=== PATIENT | female | born 2000 | race Caucasian/White ===

== ENCOUNTER 2018-06-10 08:09 | Emergency (ER) | payer BC ==
[2018-06-10 08:26] VITALS: BP 123/70
--- NOTE | 2018-06-10 08:41 | UC ---
Skin Complaint HPI - HPI Summary HPI Summary: 18 yo female with spreading pruritic rash x 2 weeks recently rxed for strep had similar but less severe rash with strep in the past - History of Current Complaint Chief Complaint: UCRash Time Seen by Provider: 06/10/18 08:31 Stated Complaint: HIVES Hx Obtained From: Patient Hx Last Menstrual Period: 06/03/18 Onset/Duration: Gradual Onset, Lasting Weeks Timing: Constant Onset Severity: Mild Current Severity: Severe Pain Intensity: 2 Pain Scale Used: 0-10 Numeric Location: Discrete Character: Pruritus, Redness, Raised Aggravating Factor(s): Nothing Alleviating Factor(s): Nothing Associated Signs & Symptoms: Positive: Rash - Allergy/Home Medications Allergies/Adverse Reactions: Allergies Allergy/AdvReac Type Severity Reaction Status Date / Time amoxicillin Allergy Intermediate Rash Verified 06/10/18 08:27 azithromycin Allergy Intermediate Rash Verified 06/10/18 08:27 Penicillins Allergy Intermediate Rash Verified 06/10/18 08:27 PMH/Surg Hx/FS Hx/Imm Hx Previously Healthy: Yes - Surgical History Surgical History: None - Family History Known Family History: Positive: Non-Contributory Family History: Reviewed & N/C - Social History Alcohol Use: Occasionally Substance Use Type: Marijuana Smoking Status (MU): Former Smoker Review of Systems All Other Systems Reviewed And Are Negative: Yes Constitutional: Positive: Negative Skin: Positive: Rash Eyes: Positive: Negative ENT: Positive: Negative Respiratory: Positive: Negative Cardiovascular: Positive: Negative Gastrointestinal: Positive: Negative Genitourinary: Positive: Negative Motor: Positive: Negative Neurovascular: Positive: Negative Musculoskeletal: Positive: Negative Neurological: Positive: Negative Psychological: Positive: Negative Physical Exam Triage Information Reviewed: Yes Appearance: Well-Appearing, No Pain Distress, Well-Nourished Vital Signs: Initial Vital Signs Temp 98.5 F 06/10/18 08:21 Pulse 86 06/10/18 08:21 Resp 20 06/10/18 08:21 BP 123/70 06/10/18 08:21 Pulse Ox 100 06/10/18 08:21 Vital Signs Reviewed: Yes Eyes: Positive: Conjunctiva Clear ENT: Positive: Hearing grossly normal. Negative: Nasal congestion, Nasal drainage, Trismus, Muffled voice, Hoarse voice Neck: Positive: Supple, Nontender, No Lymphadenopathy Respiratory: Positive: Lungs clear, Normal breath sounds, No respiratory distress, No accessory muscle use Cardiovascular: Positive: RRR, No Murmur Abdomen Description: Positive: Nontender Bowel Sounds: Positive: Present Musculoskeletal: Positive: ROM Intact, No Edema Neurological: Positive: Alert Psychological Exam: Normal Skin: Positive: Rashes - tear rop sized red raised lesions worse in axilla and trunk .....most with scale Course/Dx - Diagnoses Provider Diagnosis: Guttate psoriasis Discharge - Sign-Out/Discharge Documenting (check all that apply): Patient Departure All imaging exams completed and their final reports reviewed: No Studies - Discharge Plan Condition: Stable Disposition: HOME Prescriptions: hydrOXYzine HCL TAB* [Atarax TAB*] 25 mg PO QID PRN #20 tab PRN Reason: Itching Patient Education Materials: Psoriasis (ED) Referrals: Sindi Malave [Medical Doctor] - Additional Instructions: I suspect you have guttate psoriasis due to your recent strep infection This should be managed by a specialist...you may need UV light treatments - Billing Disposition and Condition Condition: STABLE Disposition: Home
== END 2018-06-10 08:47 | disposition home or self-care (01) ==
LOC: UCEAST 08:09
DX: L40.4 Guttate psoriasis (principal); Z88.1 Allergy status to other antibiotic agents; Z88.0 Allergy status to penicillin; Z87.891 Personal history of nicotine dependence
CPT/HCPCS: 99212; G0463